=== PATIENT | female | born 1995 | race African-American/Black ===

== ENCOUNTER 2016-12-06 22:06 | Emergency (ER) | payer OTHER ==
[~2016-12-06] VITALS: Ht 170.2 cm; Wt 58.5 kg
[2016-12-06 22:38] LABS: HEMATOCRIT 37.6 % (37.0-47.0); MCHC 31.9 g/dL (28.0-37.0); MCV 78.4 fL (80.0-100.0); RBC 4.8 mil/uL (4.20-5.00); RDW 14.8 % (10.5-14.5)
[2016-12-06 22:46] LABS: CREATININE 0.7 mg/dL (0.6-1.0); POTASSIUM 3.6 mmol/L (3.5-5.1)
[2016-12-07 00:26] VITALS: BP 110/66
[2016-12-08 20:10] LABS: CHLAMYDIA TRACHOMATIS-PCR Negative (Negative); NEISSERIA GONORRHEA-PCR Negative (Negative)
== END 2016-12-07 00:36 | disposition home or self-care (01) ==
LOC: ER 22:06
PROVIDERS: Emergency Medicine
DX: O03.9 Complete or unspecified spontaneous abortion without complication (principal); Z3A.01 Less than 8 weeks gestation of pregnancy

== ENCOUNTER 2018-05-12 08:29 | Emergency (ER) | payer OTHER ==
[~2018-05-12] VITALS: Ht 170.2 cm; Wt 72.6 kg
[2018-05-12] MEDS ORDERED: TOBRADEX EYE DRO5 ML OPHTHALMIC (08:42)
[2018-05-12] MEDS ORDERED: TOBRAMYCIN SULFA5 M1 OPHTHALMIC (08:43)
[2018-05-12 08:54] VITALS: BP 111/67
== END 2018-05-12 08:55 | disposition home or self-care (01) ==
LOC: ER 08:29
DX: H10.33 Unspecified acute conjunctivitis, bilateral (principal)